=== PATIENT | male | born 1980 ===

== ENCOUNTER 2024-06-01 19:56 | Emergency (ER) | payer SELFPAY ==
[2024-06-01 20:31] LABS: BASOPHILS ABSOLUTE AUTO 0.02 K/uL (0.00-0.20); BASOPHILS PERCENT AUTO 0.5 % (0.0-2.0); HEMATOCRIT 41.8 % (39.0-49.0); HEMOGLOBIN 14.3 g/dL (13.1-16.8); LYMPHOCYTES ABSOLUTE AUTO 1.65 K/uL (0.50-3.50); LYMPHOCYTES PERCENT AUTO 39.2 % (10.0-50.0); MEAN CORPUSCULAR HEMOGLOBIN 29.7 pg (28.2-33.3); MEAN CORPUSCULAR HGB CONC 34.2 g/dL (31.7-36.0); MEAN CORPUSCULAR VOLUME 86.9 fL (84.0-98.0); MONOCYTES ABSOLUTE AUTO 0.49 K/uL (0.00-1.00); MONOCYTES PERCENT AUTO 11.6 % (2.0-14.0); NEUTROPHILS ABSOLUTE AUTO 2.05 K/uL (1.40-7.00); NEUTROPHILS PERCENT AUTO 48.7 % (45.0-80.0); PLATELET COUNT,PLT 93 K/uL (150-350); RED BLOOD CELL COUNT 4.81 M/uL (4.33-5.41); RED CELL DISTRIBUTION WIDTH 14.2 % (11.2-14.1); WHITE BLOOD CELL COUNT,WBC 4.2 K/uL (4.0-10.2)
[2024-06-01 20:54] LABS: ALANINE AMINOTRANSFERASE,ALT 75 U/L (12-78); ALBUMIN 4.3 g/dL (3.4-5.0); ALKALINE PHOSPHATASE 131 IU/L (46-116); ANION GAP 12.1 meq/L (7-15); ASPARTATE AMNIOTRANSFERASE,AST 61 U/L (15-37); BILIRUBIN TOTAL 0.8 mg/dL (0.2-1.0); BLOOD UREA NITROGEN,BUN 12 mg/dL (7-18); CALCIUM 8.2 mg/dL (8.5-10.1); CARBON DIOXIDE,CO2 25.9 mmol/L (21.0-32.0); CHLORIDE,CL 102 mmol/L (98-107); CREATININE 1.03 mg/dL (0.51-1.17); ETHANOL BLOOD MEDICAL 0.233 g/dL (0.000-0.080); GLUCOSE RANDOM 111 mg/dL (70-99); LIPASE 71 U/L (16-77); POTASSIUM,K 3.6 mmol/L (3.5-5.1); PRO B-TYPE NATRIUR PEPT,BNPPRO 46 pg/mL (0-125); SODIUM,NA 140 mmol/L (136-145)
[2024-06-01 20:56] LABS: ESTIMATED GFR 97 mL/min (>=60)
[2024-06-01] MEDS ORDERED: Lactated Ringers 1,000 ML IV SCH (21:30)
[2024-06-02] MEDS: LORazepam 2 MG/ML SDV IVPUSH PRN (01:51)
[2024-06-02] MEDS: Sodium Chloride 0.9% 10 ML Syringe FLUSH PRN (01:54)
[2024-06-02] MEDS: Ondansetron 4 MG/2 ML SDV IVPUSH ONE (07:40)
== END 2024-06-02 07:45 ==
LOC: EDBD 19:56 → LL.ED 19:56
DX: F10.10 Alcohol abuse, uncomplicated (principal); Y90.0 Blood alcohol level of less than 20 mg/100 ml
CPT/HCPCS: 36415; 80053; 80307; 83690; 83880; 84484; 85025; 93005; 96374; 96375; 96376; 99285-25; J2060; J2405